=== PATIENT | female | born 1950 | race Caucasian/White ===

== ENCOUNTER 2023-03-23 10:57 | Day surgery (SDC) | payer OTHER, MEDICAID ==
[~2023-03-23] VITALS: Ht 160 cm; Wt 59.0 kg
[~2023-03-23 10:57] MED LIST: ALLO100T PO; AMLO1TAB22 PO; ASPI-543 PO; DAPA1TAB4 PO; GABA-1308 PO; GLIP1TAB8 PO; METO-158 PO; RANO500T3 PO; SIMV20TA20 PO
[2023-03-23] MEDS ORDERED: fentaNYL CITRATE 100 MCG/2 ML VL ONE (14:16)
[2023-03-23] MEDS ORDERED: ANGIOMAX 250 MG VIAL IV ONE (14:16)
[2023-03-23] MEDS ORDERED: MIDAZOLAM HCL 2MG/2ML 2ml VIAL (1mg/ml) ONE (14:16)
[2023-03-23] MEDS ORDERED: VERAPAMIL 2.5MG/ML INJ 2ML VIAL IV ONE (14:16)
[2023-03-23] MEDS ORDERED: IOHEXOL 350 MG/ML 100ML IJ ONE (14:17)
[2023-03-23] MEDS ORDERED: SODIUM CHL 0.9% 0 ML ONE (14:17)
[2023-03-23] MEDS ORDERED: LIDOCAINE 2%HCL (LOCAL ANESTH.) INJ 20ML MDV ONE (14:17)
[2023-03-23] MEDS ORDERED: HEPARIN SODIUM (PORCINE) 5000 UNITS/ML 1ML VIAL ONE (14:48)
[2023-03-23 15:14] VITALS: BP 127/64; PULSE 60; RESP 17; O2SAT 90
[2023-03-23 15:43] VITALS: BP 95/60; PULSE 58; RESP 17
[2023-03-23 15:59] VITALS: BP 81/52; PULSE 69; RESP 19
[2023-03-23 16:14] VITALS: BP 119/59; PULSE 65; RESP 21; O2SAT 94
[2023-03-23 16:43] VITALS: BP 125/69; PULSE 60; RESP 16; O2SAT 93
[2023-03-23 16:58] VITALS: BP 126/68; PULSE 63; RESP 19; O2SAT 95
== END 2023-03-23 17:10 | disposition home or self-care (01) ==
LOC: CATH 10:57
PROVIDERS: ATTEND Internal Medicine Cardiovascular Disease
DX: I25.118 Atherosclerotic heart disease of native coronary artery with other forms of angina pectoris (principal); R07.89 Other chest pain; R06.09 Other forms of dyspnea; I12.9 Hypertensive chronic kidney disease with stage 1 through stage 4 chronic kidney disease, or unspecified chronic kidney disease; E78.5 Hyperlipidemia, unspecified; E11.22 Type 2 diabetes mellitus with diabetic chronic kidney disease; N18.9 Chronic kidney disease, unspecified; E66.9 Obesity, unspecified; Z98.0 Intestinal bypass and anastomosis status; Z98.890 Other specified postprocedural states; Z79.899 Other long term (current) drug therapy; Z79.01 Long term (current) use of anticoagulants; Z79.82 Long term (current) use of aspirin
CPT/HCPCS: 93458; C1725; C1769; C1894; J1644; J2250; J3010; Q9967; 99152